=== PATIENT | male | born 1990 | race Hispanic/Latino ===

== ENCOUNTER 2019-08-29 01:25 | Emergency (ER) | payer BC ==
[~2019-08-29] VITALS: Ht 182.9 cm; Wt 103.4 kg
[2019-08-29 01:35] VITALS: BP 169/114
--- NOTE | 2019-08-29 01:44 | ER.PDOC ---
General Chief Complaint: Requesting Medical Care Stated Complaint: DIFF BREATHING Time seen by MD: 01:37 Source: patient History of Present Illness Initial Comments patient states having intermittent chest pain for over two weeks across chest dull, sometimes he has dyspnea and sweats and palpitations also. no hx cad/pe/dvt. 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 Timing/Duration: 4-6 hours Severity: moderate Activities at Onset: rest Prior Episodes/Possible Cause: occasional episodes Associated Symptoms: chest pain Allergies: Coded Allergies: No Known Allergies (Unverified , 08/29/19) Review of Systems Constitutional: denies chills, denies fever Respiratory: denies cough; shortness of breath Cardiovascular: chest pain, palpitations Gastrointestinal: denies abdominal pain, denies diarrhea, denies vomiting Genitourinary: denies pain Musculoskeletal: denies neck pain Skin: denies rash Psychiatric/Neurological: denies headache Physical Exam General Appearance: No Apparent Distress, WD/WN HEENT: PERRL/EOMI, Normal ENT Inspection Neck: Non-Tender Respiratory: chest non-tender, lungs clear Cardiovascular: Regular Rate, Rhythm Gastrointestinal: Non Tender Extremities: Normal Range of Motion, Non-Tender, Normal Inspection, No Pedal Edema Neurologic/Psychiatric: steward/stewardess third class II-XII NML as Tested, No Motor/Sensory Deficits, Alert, Normal Mood/Affect, Oriented x 3 Skin: Normal Color Results/Orders Results/Orders Orders - SARAH,BLANCA Wahl MD Cbc With Auto Diff (08/29/19 01:41) Comprehensive Metabolic Panel (08/29/19 01:41) Creatine Kinase (08/29/19 01:41) Creatine Kinase Mb (08/29/19 01:41) Troponin I (08/29/19 01:41) Probnp B-Type Poultry Scalder (08/29/19 01:41) D-Dimer (08/29/19 01:41) Xr Chest 1v (08/29/19 01:41) Ekg-Routine (08/29/19 01:41) Saline Lock (08/29/19 01:41) Vital Signs Date Time Temp Pulse Resp B/P (MAP) Pulse Ox O2 Delivery O2 Flow Rate FiO2 08/29/19 01:35 98.1 90 18 99 08/29/19 01:35 98.1 90 18 169/114 (132) 99 Room Air 08/29/19 01:35 98.1 90 18 Laboratory Tests Test 08/29/19 01:49 White Blood Count 8.9 10^3/uL (4.5-11.0) Red Blood Count 4.48 10^6/uL (4.50-5.90) L Hemoglobin 14.0 g/dL (13.9-16.3) Hematocrit 39.1 % (37.0-53.0) Mean Corpuscular Volume 87.3 fL (78-100) Mean Corpuscular Hemoglobin 31.3 pg (26-34) Mean Corpuscular Hemoglobin Concent 35.8 g/dL (33-36.5) Red Cell Distribution Width 12.2 % (11.5-14.5) Platelet Count 243 10^3/uL (150-400) Mean Platelet Volume 10.2 fL (7.8-11.0) Neutrophils (%) (Auto) 54.6 % (41.0-85.0) Lymphocytes (%) (Auto) 34.5 % (24.0-44.0) Monocytes (%) (Auto) 8.7 % (5.0-12.0) Neutrophils # (Auto) 4.9 10^3/uL (1.8-7.7) Lymphocytes # (Auto) 3.08 10^3/uL1 (1.0-4.8) Monocytes # (Auto) 0.8 10^3/uL (0.3-0.8) Absolute Immature Granulocyte (auto 0.01 10^3 u/L (0-2) Absolute Eosinophils (auto) 0.1 10^3/uL (0.0-0.2) Immature Granulocytes % 0.10 % (0.00-0.50) Eosinophils % 1.5 % (0.0-5.0) Basophils % 0.6 % (0.0-0.2) H Basophils # 0.1 10^3/uL (0.0-0.1) D-Dimer 0.28 mg/L (0.19-0.49) Sodium Level 140 mmol/L (132-145) Potassium Level 3.1 mmol/L (3.6-5.2) L Chloride Level 102.0 mmol/L (96-109) Carbon Dioxide Level 22.8 mmol/L (20.0-32) Anion Gap 18.3 Blood Urea Nitrogen 15 mg/dL (7-18) Creatinine 1.22 mg/dL (0.59-1.40) Estimated GFR () 86.2 (>/=60) Est GFR (CKD-EPI)(Non-Afr [place]) 71.3 (>/=60) BUN/Creatinine Ratio 12.0 Glucose Level 123 mg/dL (70-110) H Calcium Level 9.4 mg/dL (8.4-10.5) Total Bilirubin 0.7 mg/dL (0.2-1.0) Aspartate Amino Transferase (AST) 49 U/L (0-35) H Alanine Aminotransferase (ALT) 127 U/L (12-78) H Alkaline Phosphatase 90 U/L (50-136) Total Creatine Kinase 356 U/L (39-308) H Creatine Kinase MB 1.0 ng/mL (0.5-3.6) Troponin I < 0.02 ng/mL (0.00-0.05) Pro-B-Type Natriuretic Peptide 58 pg/mL (0-125) Total Protein 8.1 g/dL (6.4-8.2) Albumin 4.4 g/dL (3.4-5.0) Globulin 3.7 Departure Time of Disposition: 02:29 Disposition: 01 HOME, SELF-CARE Impression: Primary Impression: Chest pain Condition: Stable Patient Instructions: Chest Pain (Nonspecific), Hypokalemia Referrals: PCP,UNKNOWN (PCP) PRIMARY CARE PROVIDER BERTO LAIRD MD Additional Instructions: see your primary care doctor for evaluation and further testing call for appointment in am Duration or Time Spent with Pa: 20 BLANCA SMITH MD Aug 29, 2019 01:44
--- NOTE | 2019-08-29 01:46 | PCM.EKG ---
[facility] Test Date: 2019-08-29 Test Time: 01:39:28 Pat Name: CRISTIAN OG Department: [id number] Room: Gender: M [employer] Developer: MANAN : 1990 Requested By: AMADOU SANCHEZ Order Number: [id number] Reading MD: Amadou Sanchez Measurements Intervals [place] Rate: 94 P: 48 MI: 171 QRS: 20 QRSD: 99 T: 47 QT: 355 QTc: 444 Interpretive Statements Sinus rhythm RSR' in V1 or V2, right VCD or RVH No previous ECG available for comparison Electronically Signed On 08-29-2019 1:47:08 CDT by Amadou Sanchez Please click the below link to view image of tracing.
[2019-08-29 01:54] LABS: BASOPHIL # 0.1 10^3/uL (0.0-0.1); BASOPHIL % 0.6 % (0.0-0.2); EOSINOPHIL # 0.1 10^3/uL (0.0-0.2); EOSINOPHIL % 1.5 % (0.0-5.0); LYMPHOCYTES # 3.08 10^3/uL1 (1.0-4.8); LYMPHOCYTES % 34.5 % (24.0-44.0); MEAN CORP HGB 31.3 pg (26-34); MONOCYTES # 0.8 10^3/uL (0.3-0.8); MONOCYTES % 8.7 % (5.0-12.0); NEUTROPHIL # 4.9 10^3/uL (1.8-7.7); NEUTROPHILS % 54.6 % (41.0-85.0); PLATELET COUNT 243 10^3/uL (150-400); RED CELL DISTRIBUTION WIDTH 12.2 % (11.5-14.5)
--- NOTE | 2019-08-29 02:05 | DIREP ---
PROCEDURE:CHEST 1 VIEW COMPARISON:None. INDICATIONS:chest pain FINDINGS: LUNGS/PLEURA:No significant pulmonary parenchymal abnormalities. No effusions. VASCULATURE:Normal. Unremarkable pulmonary vasculature. CARDIAC:Normal. No cardiac silhouette abnormality or cardiomegaly. MEDIASTINUM:Normal. No visible mass or adenopathy. BONES:Normal. No fracture or visible bony lesion. OTHER:Negative. CONCLUSION:Normal examination. Dictated by: Graham Atkinson MD on 08/29/2019 at 02:04 AM
[2019-08-29 02:19] LABS: ALANINE AMINOTRANSFERASE(ML) 127 U/L (12-78); ALKALINE PHOSPHATASE 90 U/L (50-136); ASPARTATE AMINO TRANSFERASE 49 U/L (0-35); CALCIUM 9.4 mg/dL (8.4-10.5); CARBON DIOXIDE 22.8 mmol/L (20.0-32); GLUCOSE 123 mg/dL (70-110)
[2019-08-29 02:30] VITALS: BP 159/96
== END 2019-08-29 02:32 | disposition home or self-care (01) ==
LOC: ER 01:25
DX: R07.89 Other chest pain (principal)
CPT/HCPCS: 36415; 71045; 80053; 82550; 82553; 83880; 84484; 85025; 85379; 93005; 99285